=== PATIENT | male | born 1945 | race Caucasian/White ===

== ENCOUNTER 2016-08-27 20:50 | Inpatient (IN) | payer MEDICARE, BC ==
[2016-08-27] MEDS ORDERED: Nitroglycerin 2% OINT* 1 GM PAK TOPICAL ONE (21:21)
[2016-08-27] MEDS ORDERED: Aspirin Low Dose CHEW TAB* 81 MG PO ONE (21:21)
[2016-08-27 21:39] LABS: Hematocrit 47 % (42-52); Hemoglobin 15.1 g/dl (14.0-18.0); Mean Corpuscular HGB Conc 32 g/dl (31-36); Mean Corpuscular Hemoglobin 27 pg (27-31); Mean Corpuscular Volume 84 fL (80-94); Mean Platelet Volume 7 um3 (7.4-10.4); Red Blood Count 5.59 10^6/ul (4.0-5.4); Red Cell Distribution Width 16 % (10.5-15)
[2016-08-27 21:54] LABS: Albumin 4.2 g/dL (3.2-5.2); Calcium 9.5 mg/dL (8.6-10.3); EGFR African American 95.3 (>60); EGFR Non-African American 74.1 (>60); Globulin 2.9 g/dL (2-4); Potassium 3.9 mmol/L (3.5-5.0); Total Bilirubin 0.6 mg/dL (0.2-1.0); Total Protein 7.1 g/dL (6.4-8.9); Troponin I 0.02 ng/mL (<0.04)
--- NOTE | 2016-08-27 22:08 | RAD ---
Indication: Chest pain. Single frontal view of the chest performed at 2131 hours was reviewed. No prior study is available for comparison. No mediastinal shift is noted. Heart is of normal size and configuration. Lung woods appear clear. There is an elevated left hemidiaphragm. IMPRESSION: NO ACTIVE CARDIOPULMONARY DISEASE IS NOTED.
--- NOTE | 2016-08-27 22:26 | HP ---
H&P (Free Text) History and Physical: PCP: Dr Davis in [place] Date/Time of Evaluation: 08/27/2016 2230 CC: chest pain HPI: Mr Win is a 71YO male HX HTN & HLD presents with rapid onset around 1700 of severe non-radiating, non-exertional substernal chest pressure associated with sweating and light-headedness, but no SOB, N/V, or palpitations. He was given 4 baby aspirins to chew and a SL nitro via EMS which greatly alleviated his pain. While in the ED, he had a brief increase in pain and the beginning of a sweat which spontaneously resolved. ECG shows AFIB (no history) rate [address] depression in the lateral leads. Chest pressure is currently rated at 1/2 out of 10. Of note he had a R cataract extraction 2016. PMedHx HTN HLD Allergies No Known Allergies Allergy (Verified 08/27/16 20:55) Ambulatory Orders Atenolol TAB* [Tenormin TAB* 50 MG] 50 mg PO DAILY 08/27/16 Garlic 1,000 mg PO DAILY 08/27/16 Hydrocodone-Acetaminophen [Lorcet 5-325 mg] 1 tab PO Q4HR PRN 08/27/16 Ofloxacin 0.3% OTIC.CRIS* [Floxin 0.3% OTIC.CRIS*] 1 drop .SEE ORDER QID 08/27/16 Simvastatin [Zocor 40 MG (NF)] 40 mg PO QPM 08/27/16 prednisoLONE 1% OPHTH.SUSP* [Pred Forte 1%*] 1 drop .SEE ORDER QID 08/27/16 PSurgHx R cataract extraction 08/26/2016 SocHx: no tobacco, alcohol, or recreational drugs; lives with his ; full code status FamHx: positive for HTN & HLD ROS: as above, otherwise reviewed and all were negative Constitutional: NAD, normally developed, obese white male vitals: Vital Signs Temp 36.7 C 08/27/16 20:55 Pulse 71 08/27/16 20:55 Resp 32 08/27/16 20:55 BP 123/60 08/27/16 20:55 Pulse Ox 97 08/27/16 20:55 Intake & Output 08/26/16 08/27/16 08/27/16 23:59 11:59 23:59 Weight 124.738 kg HEENM: atraumatic; sclera/conjunctiva: non-icteric/clear; hearing: clinically intact; oropharynx: clear, mucosa moist Neck: soft tissue: non-tender; thyroid: normal Pulmonary: clear to auscultation bilaterally, good aeration, no accessory muscle use CV: RR/RR, normal S1S2, no carotid bruit, no jugular venous distention, 2+ B DP/ PT, no edema Abdominal: soft, non-distended, non-tender, no rebound/guarding/rigidity, normoactive bowel sounds, no hepatosplenomegaly or masses, no costovertebral angle tenderness Musculoskeletal: general: grossly intact; gait: stable Integumental: normal appearance and texture of exposed skin Psychiatric orientation: AA&O to PPS affect: calm mood: pleasant eye contact: good content: reliable responses: timely insight: good Testing: Lab Results 08/27/16 08/27/16 08/27/16 Range/Units 20:55 20:55 20:55 WBC 7.0 (3.5-10.8) 10^3/ul RBC 5.59 H (4.0-5.4) 10^6/ul Hgb 15.1 (14.0-18.0) g/dl Hct 47 (42-52) % MCV 84 (80-94) fL MCH 27 (27-31) pg MCHC 32 (31-36) g/dl RDW 16 H (10.5-15) % Plt Count 197 (150-450) 10^3/ul MPV 7 L (7.4-10.4) um3 Neut % (Auto) 66.9 (38-83) % Lymph % (Auto) 20.0 L (25-47) % [place] % (Auto) 11.4 H (1-9) % Eos % (Auto) 1.2 (0-6) % Baso % (Auto) 0.5 (0-2) % Absolute Neuts (auto) 4.7 (1.5-7.7) 10^3/ul Absolute Lymphs (auto) 1.4 (1.0-4.8) 10^3/ul Absolute Monos (auto) 0.8 (0-0.8) 10^3/ul Absolute Eos (auto) 0.1 (0-0.6) 10^3/ul Absolute Basos (auto) 0 (0-0.2) 10^3/ul Absolute Nucleated RBC 0.01 10^3/ul Nucleated RBC % 0.1 INR (Anticoag Therapy) 1.00 (0.89-1.11) Sodium 138 (133-145) mmol/L Potassium 3.9 (3.5-5.0) mmol/L Chloride 103 (101-111) mmol/L Carbon Dioxide 31 (22-32) mmol/L Anion Gap 4 (2-11) mmol/L BUN 17 (6-24) mg/dL Creatinine 1.00 (0.67-1.17) mg/dL Est GFR ( Amer) 95.3 (>60) Est GFR (Non-Af Amer) 74.1 (>60) BUN/Creatinine Ratio 17.0 (8-20) Glucose 122 H (70-100) mg/dL Calcium 9.5 (8.6-10.3) mg/dL Total Bilirubin 0.60 (0.2-1.0) mg/dL AST 18 (13-39) U/L ALT 16 (7-52) U/L Alkaline Phosphatase 41 (34-104) U/L Troponin I 0.02 (<0.04) ng/mL B-Natriuretic Peptide ( - 100) pg/mL Total Protein 7.1 (6.4-8.9) g/dL Albumin 4.2 (3.2-5.2) g/dL Globulin 2.9 (2-4) g/dL Albumin/Globulin Ratio 1.4 (1-3) 08/27/16 Range/Units 20:55 WBC (3.5-10.8) 10^3/ul RBC (4.0-5.4) 10^6/ul Hgb (14.0-18.0) g/dl Hct (42-52) % MCV (80-94) fL MCH (27-31) pg MCHC (31-36) g/dl RDW (10.5-15) % Plt Count (150-450) 10^3/ul MPV (7.4-10.4) um3 Neut % (Auto) (38-83) % Lymph % (Auto) (25-47) % [place] % (Auto) (1-9) % Eos % (Auto) (0-6) % Baso % (Auto) (0-2) % Absolute Neuts (auto) (1.5-7.7) 10^3/ul Absolute Lymphs (auto) (1.0-4.8) 10^3/ul Absolute Monos (auto) (0-0.8) 10^3/ul Absolute Eos (auto) (0-0.6) 10^3/ul Absolute Basos (auto) (0-0.2) 10^3/ul Absolute Nucleated RBC 10^3/ul Nucleated RBC % INR (Anticoag Therapy) (0.89-1.11) Sodium (133-145) mmol/L Potassium (3.5-5.0) mmol/L Chloride (101-111) mmol/L Carbon Dioxide (22-32) mmol/L Anion Gap (2-11) mmol/L BUN (6-24) mg/dL Creatinine (0.67-1.17) mg/dL Est GFR ( Amer) (>60) Est GFR (Non-Af Amer) (>60) BUN/Creatinine Ratio (8-20) Glucose (70-100) mg/dL Calcium (8.6-10.3) mg/dL Total Bilirubin (0.2-1.0) mg/dL AST (13-39) U/L ALT (7-52) U/L Alkaline Phosphatase (34-104) U/L Troponin I (<0.04) ng/mL B-Natriuretic Peptide 67 ( - 100) pg/mL Total Protein (6.4-8.9) g/dL Albumin (3.2-5.2) g/dL Globulin (2-4) g/dL Albumin/Globulin Ratio (1-3) ECG, personally reviewed: AFIB rate 81, ST flattening/depression V3-6 & I CXR, personally reviewed: IMPRESSION: NO ACTIVE CARDIOPULMONARY DISEASE IS NOTED. Impression: 71M presenting ~36hours after R cataract extraction with chest pain for r/o ACS DIAGNOSIS & PLAN Primary chest pain r/o ACS : aspirin : 0.5" nitropaste : hold heparin given near resolution of chest pain & chronologic proximity to eye surgery : telemetry : trend troponin : exercise NST in AM : supplemental oxygen : supportive care : Patient & advised that should his pain worsen, his troponin increase, or other evidence of VT arise, heparin GTT may be recommended with the risk being bleeding into the R eye and potential vision loss, although this would be a relatively low risk. They are aware and accepting of this, should it become necessary. AFIB, new onset : unknown duration : hold anticoagulation as above until further out from surgery : rate controlled : [id number], anticoagulation at discharge is recommended Secondary HTN : continue atenolol HLD : continue simvastatin recent R cataract extraction : continue ofloxacin & prednisone eye GTTs Admission Rational: CDU observation for chest pain DVTp: SCDs, no anticoagulation 2nd eye surgery <48hours ago Code Status: full HCP:
[2016-08-27] MEDS ORDERED: Acetaminophen TAB* 325 MG PO PRN (22:32)
--- NOTE | 2016-08-27 22:58 | ED ---
Allan Hubbard Rebecca, scribed for Nadeem Snyderuel on 08/27/16 at 2120 . HPI Chest Pain - HPI Summary HPI Summary: Pt is a 71 y/o M BIBA who presents to ED c/o CP. Pain began suddenly at 1915 while watching tv and has been constant since onset. Pain is substernal without radiation and characterized as pressure, currently ranked 2/10. Sx alleviated by NTG, aggravated by nothing and unchanged by deep breaths. Additionally c/o diaphoresis. Denies SOB, nausea and edema. Denies similar prior episodes. PMHx HTN, HLD. SHx no smoking. No PMHx CAD. FHx CHF. No recent stress test. - History of Current Complaint Chief Complaint: EDChestPainROMI Time Seen by Provider: 08/27/16 21:12 Hx Obtained From: Patient Onset/Duration: Started Hours Ago - 2 hours, Still Present Time of Onset: 19:15 Timing: Constant Initial Severity: Moderate Current Severity: Mild Pain Intensity: 2 Pain Scale Used: 0-10 Numeric Chest Pain Location: Lower Sternal Chest Pain Radiates: No Character: Pressure/Squeezing Aggravating Factor(s): Nothing Alleviating Factor(s): NTG 123 - 1 Associated Signs and Symptoms: Positive: Diaphoresis. Negative: Shortness of Breath, Nausea, Edema - Allergy/Home Medications Allergies/Adverse Reactions: Allergies Allergy/AdvReac Type Severity Reaction Status Date / Time No Known Allergies Allergy Verified 08/27/16 20:55 PMH/Surg Hx/FS Hx/Imm Hx Endocrine/Hematology History: Denies: Hx Diabetes Cardiovascular History: Reports: Hx Hypercholesterolemia, Hx Hypertension Denies: Hx Coronary Artery Disease Infectious Disease History: No Infectious Disease History: Denies: Traveled Outside the [place] in Last 30 Days - Family History Known Family History: Positive: Other - CHF - father - Social History Alcohol Use: Occasionally Substance Use Type: Reports: None Smoking Status (MU): Never Smoked Tobacco Review of Systems Positive: Skin Diaphoresis Positive: Chest Pain - pressure Negative: Shortness Of Breath Negative: Nausea Negative: Edema All Other Systems Reviewed And Are Negative: Yes Physical Exam Triage Information Reviewed: Yes Vital Signs On Initial Exam: Initial Vitals Temp Pulse Resp BP Pulse Ox 98.0 F 71 32 123/60 97 08/27/16 20:55 08/27/16 20:55 08/27/16 20:55 08/27/16 20:55 08/27/16 20:55 Vital Signs Reviewed: Yes Appearance: Positive: Well-Appearing, No Pain Distress Skin: Positive: Warm, Skin Color Reflects Adequate Perfusion, Dry Head/Face: Positive: Normal Head/Face Inspection Eyes: Positive: EOMI, VOLODYMYR ENT: Positive: Normal ENT inspection Neck: Positive: Supple, Nontender Respiratory/Lung Sounds: Positive: Clear to Auscultation, Breath Sounds Present Cardiovascular: Positive: RRR, Pulses are Symmetrical in both Upper and Lower Extremities Abdomen Description: Positive: Nontender, Soft Bowel Sounds: Positive: Present Musculoskeletal: Positive: Normal, Strength/ROM Intact Neurological: Positive: Normal, Sensory/Motor Intact, Alert, Oriented to Person Place, Time - [place] Coma Scale Coma Scale Total: 15 Diagnostics - Vital Signs Vital Signs Temp Pulse Resp BP Pulse Ox 08/27/16 20:55 98.0 F 71 32 123/60 97 - Laboratory Result Diagrams: 08/27/16 20:55 08/27/16 20:55 Lab Statement: Any lab studies that have been ordered have been reviewed, and results considered in the medical decision making process. - Radiology CXR Radiology Interpretation Completed By: Radiologist - NO ACTIVE CARDIOPULMONARY DISEASE IS NOTED. - EKG 2048 Cardiac Rate: NL - 84 bpm EKG Rhythm: Atrial Fibrillation ST Segment: Non-Specific - Non-specific ST changes EKG Interpretation: No STEMI Chest Pain Course/Dx - Course Assessment/Plan: Pt is a 71 y/o M with a CC of substernal CP since 191. Additionally c/o diaphoresis. Denies SOB, nausea and edema. CXR and EKG reveal no acute pathology. Discussed care of pt with Dr. Bower, who accepts pt for admission. Pt will be admitted. - Diagnoses Provider Diagnoses: Chest pain, Chest pain, rule out acute myocardial infarction - Provider Notifications Discussed Care Of Patient With: Dr. Bower, hospitalist, who accepts pt for admission. Time Discussed With Above Provider: 22:24 Discharge - Discharge Plan Condition: Stable Disposition: ADMITTED TO [facility] documentation as recorded by the Allan magdaleno Rebecca accurately reflects the service I personally performed and the decisions made by , Cristino Snyder.
[2016-08-27] MEDS ORDERED: Ondansetron INJ* 2 MG/ML VIAL IV PRN (23:12)
[2016-08-27] MEDS ORDERED: Morphine INJ* 2 MG/ML 1 ML SYRINGE IV PRN (23:12)
[2016-08-27] MEDS ORDERED: PROCHLORPERAZINE INJ 5 MG/ML 2 ML VIAL IV PRN (23:12)
[2016-08-27] MEDS ORDERED: Melatonin (NF) 3 MG TAB PO PRN (23:12)
[2016-08-27] MEDS ORDERED: NS 0.9% 1000 ML* 1,000 ML IV SCH (23:15)
[2016-08-27] MEDS: Nitroglycerin 2% OINT* 1 GM PAK TOPICAL SCH (23:36)
[2016-08-27] MEDS ORDERED: Pantoprazole IV* 40 MG IV SCH (23:45)
[2016-08-28] MEDS: Nitro Patch/OINT Remove PATCH OFF SCH ×2 (01:06→06:09)
[2016-08-28] MEDS: OFLOXACIN 0.3% RIGHT EYE SCH ×5 (01:16→20:35)
[2016-08-28] MEDS: PREDNISOLONE 1% RIGHT EYE SCH ×5 (01:18→20:35)
[2016-08-28] MEDS ORDERED: Heparin DRIP 25,000 UNITS(*) 25,000 UNITS/500 ML BAG IVPB SCH (01:45)
--- NOTE | 2016-08-28 01:48 | PN ---
Progress Note - Progress Note Note: Nursing called reporting 3H follow up troponin of 19. Situation was re- addressed with patient in light of this new finding representing an NSTEMI. He is aware of and accepts the risk of heparin GTT mainly being bleeding into the R eye with resultant decrease in or total loss of vision in the R eye as he is < 48H s/p OD cataract extraction. His exercise NST was cancelled and a heparin GTT per protocol ordered. Will consult cardiology in AM for further evaluation & consideration of cardiac cath.
[2016-08-28] MEDS ORDERED: Heparin VIAL(*) 5000 UNITS/ML VIAL (FIVE THOUSAND) IV PRN (02:54)
[2016-08-28] MEDS: Nitroglycerin 2% OINT* 1 GM PAK TOPICAL SCH (06:10)
[2016-08-28] MEDS ORDERED: Nitroglycerin TAB 0.4 MG* 0.4 MG TAB ONE (07:47)
[2016-08-28] MEDS: Atenolol TAB* 50 MG PO SCH (08:33)
[2016-08-28] MEDS ORDERED: Heparin(*) 1000 UNIT/ML 10 ML VIAL CATH LAB IV ONE ×3 (08:43→10:38)
[2016-08-28] MEDS ORDERED: VERAPAMIL 2.5 MG/ML 4 ML VIAL ONE ×2 (08:43→09:08)
[2016-08-28] MEDS ORDERED: nitroGLYCERIN DRIP* 250 ML ONE (08:43)
[2016-08-28] MEDS ORDERED: Midazolam* 1 MG/ML 5 ML VIAL (5 MG) ONE (08:44)
[2016-08-28] MEDS ORDERED: fentaNYL* 50 MCG/ML 2 ML VIAL (100 MCG VIAL) ONE (08:44)
[2016-08-28] MEDS ORDERED: Iohexol 350 (CONTRAST) 200 ML MDV IV ONE (08:44)
[2016-08-28] MEDS ORDERED: Lidocaine 1% INJ* 10 MG/ML 30 ML SDV ONE (08:45)
[2016-08-28] MEDS ORDERED: Heparin 2 UNITS/ML IVPREMIX* 3,000 ML IV ONE (08:45)
[2016-08-28] MEDS ORDERED: Aspirin TAB* 325 MG PO SCH (09:00)
[2016-08-28] MEDS ORDERED: Aspirin Low Dose CHEW TAB* 81 MG ONE (10:06)
[2016-08-28] MEDS ORDERED: Ticagrelor* 90 MG TAB PO ONE (10:06)
[2016-08-28] MEDS ORDERED: Nitroglycerin TAB 0.4 MG* 0.4 MG TAB SL PRN (11:00)
[2016-08-28] MEDS ORDERED: NS 0.9% 1000 ML* 1,000 ML IV SCH (11:00)
--- NOTE | 2016-08-28 11:26 | CONSULT ---
Subjective Date of Service: 08/28/16 Interval History: Admission Date: 08/27/16 Consult date 08/28/2016 Provider: Augie Bower MD/Hospitalist CC: Chest pain Reason for consult: NSTEMI HPI : Mr Win is a 71 year old man with a history of hypertension and dyslipidemia. Was exercising yesterday and was asymptomatic. 2 hours later had sudden onset 5/10 chest pressure at rest non-radiationg associated with sweating and light-headedness, but no dyspnea. No palpitations or syncope. No prior episodes. He was given 4 baby aspirins to chew and a SL nitro via EMS which reduced pressure to from 5/10 to "barely noticeable" which has persisted. Found to be in atrial fibrillation onset unclear. States that long time ago was told heart beat pauses for a second but was not a cause of concern. Denies every being prescribed a daily aspirin or anti-coagulant. No blood transfusions or anemia history. No kidney problems. No food or drug allergies. Patient was given aspirin, heparin gtt and maintained on atenolol. Had 8 beats NSVT on monitor overnight. PMedHx HTN HLD Pshx: R cataract extraction 08/26/2016. 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 Medications Active Medications: Acetaminophen (Tylenol Tab*) 650 mg PO Q6H PRN PRN Reason: FEVER/PAIN Aspirin (Aspirin Low Dose Tab*) 81 mg PO DAILY [facility] Atenolol (Tenormin Tab*) 50 mg PO DAILY [facility] Last Admin: 08/28/16 08:33 Dose: 50 mg Atorvastatin Calcium (Lipitor*) 80 mg PO QPM [facility] Docusate Sodium (Colace Cap*) 200 mg PO BID [facility] Heparin Sodium (Porcine) (Heparin Vial(*)) 0 units IV .PER PROTOCOL PRN PRN Reason: HEPARIN DRIP BOLUSES Last Admin: 08/28/16 03:09 Dose: 7,200 units Sodium Chloride (Ns 0.9% 1000 Ml*) 1,000 mls @ 100 mls/hr IV .per rate [facility] Stop: 08/28/16 15:00 Melatonin (Melatonin (Nf)) 3 mg PO BEDTIME PRN; Protocol PRN Reason: Sleep Morphine Sulfate (Morphine Inj (Syringe)*) 2 mg IV Q4H PRN PRN Reason: PAIN - MILD Nitroglycerin (Nitroglycerin Tab 0.4 Mg*) 0.4 mg SL Q5M PRN PRN Reason: ANGINA Ofloxacin (Ocuflox Opth 0.3%(Nf)) 1 drop RIGHT EYE QID [facility] Last Admin: 08/28/16 08:38 Dose: 1 drop Ondansetron HCl (Zofran Inj*) 4 mg IV Q6H PRN PRN Reason: NAUSEA Prednisolone Acetate (Pred Forte 1%*) 1 drop RIGHT EYE QID [facility] Last Admin: 08/28/16 08:38 Dose: 1 drop Prochlorperazine Edisylate (Compazine Inj*) 10 mg IV Q6H PRN PRN Reason: NAUSEA Ticagrelor (Brilinta*) 90 mg PO BID [facility] Home Medications: Atenolol TAB* [Tenormin TAB* 50 MG] 50 mg PO DAILY 08/27/16 [History Confirmed 08/27/16] Garlic 1,000 mg PO DAILY 08/27/16 [History Confirmed 08/27/16] Hydrocodone-Acetaminophen [Lorcet 5-325 mg] 1 tab PO Q4HR PRN 08/27/16 [History Confirmed 08/27/16] Ofloxacin 0.3% OTIC.CRIS* [Floxin 0.3% OTIC.CRIS*] 1 drop .SEE ORDER QID 08/27/16 [History Confirmed 08/27/16] Simvastatin [Zocor 40 MG (NF)] 40 mg PO QPM 08/27/16 [History Confirmed 08/27/16 ] prednisoLONE 1% OPHTH.SUSP* [Pred Forte 1%*] 1 drop .SEE ORDER QID 08/27/16 [ History Confirmed 08/27/16] Review of Systems - Measurements Intake and Output: Intake and Output Last 24 Hours 08/26/16 08/27/16 08/28/16 08/29/16 06:59 06:59 06:59 06:59 Intake Total 680 Output Total 200 Balance 480 Weight 283 lb Intake: IV Fluids 630 NS (0.9%) 620 Medicated IV 50 Heparin drip 50 Oral 0 Output: Urine 200 Other: # Bowel Movements 0 - Review of Systems Constitutional Symptoms: Negative: Weight Gain, Weight Loss, Weakness, Fatigue, Fever, Night Sweats, Unexplained Falls Dermatology: Negative: Normal, Rash, Skin Lesions HEENT: Negative: Change in Hearing, Vertigo Eyes: Negative: Change in Vision, Double Vision Thyroid: Negative: Thyroid Nodule, Cold Intolerance, Heat Intolerance, Constipation, Palpitations Pulmonary: Negative: Cough, Sputum, Hemoptysis, Wheezing, Respiratory Distress, Shortness of Breath, COPD Cardiology: Positive: Chest Pain Negative: Shortness of Breath, Palpitations, Swelling of Ankles, Peripheral Vascular Dis, Edema, Faintness, Syncope, Claudication, Paroxysmal Nocturnal Dyspnea, Orthopnea Gastroenterology: Negative: Abdominal Pain, Vomiting, Anorexia, Indigestion, Difficulty Swallowing, Heartburn, Constipation, Diarrhea, Haematemesis, Melena Genital - Urinary: Negative: Normal, Dysuria Musculoskeletal: Negative: Joint Pain, Joint Stiffness, Arthritis, Osteoporosis, Low Back Pain Endocrinology: Positive: Obesity Negative: Diabetes, Hyperglycemia, Hypoglycemia, Diabetic Foot Ulcers, Polydipsia, Polyuria Hematologic/Lymphatic: Negative: Anemia, Hx Leukemia, Hx Lymphoma, Use of Anticoagulant, Use of Antiplatelet Drugs Neurology: Negative: Change in Balancing, Change in Coordination, Change in Memory, Change in Speech, Change in Sphincter Function, Change in Walking Psychiatry: Negative: Depression, Anxiety, Depressed Mood, Adhedonia Allergic/Immunologic: Negative: Hx Anaphylaxis, Hx Angioedema, Hx HIV, Immunocompromise Review of Systems Statement: All other review of systems negative, unless stated above. Objective Vital Signs: Temp Pulse Resp BP Pulse Ox 98.4 F 98 24 128/82 97 08/28/16 08:12 08/28/16 08:12 08/28/16 08:12 08/28/16 08:12 08/28/16 08:12 Appearance: NAD, very pleasant Ears/Nose/Mouth/Throat: Clear Oropharnyx, Mucous Membranes Moist Neck: NL Appearance and Movements; NL JVP Respiratory: Symmetrical Chest Expansion and Respiratory Effort, Clear to Auscultation Cardiovascular: NL Sounds; No Murmurs; No JVD, RRR, No Edema Abdominal: NL Sounds; No Tenderness; No Distention Extremities: No Edema Skin: No Rash or Ulcers Neurological: Alert and Oriented x 3, NL Muscle Strength and Tone Laboratory Results: 08/27/16 20:55 08/27/16 20:55 INR (Anticoag Therapy) 1.00 (0.89-1.11) 08/27/16 20:55 APTT > 212.0 seconds (26.0-36.3) H* 08/28/16 05:06 Total Bilirubin 0.60 mg/dL (0.2-1.0) 08/27/16 20:55 AST 18 U/L (13-39) 08/27/16 20:55 ALT 16 U/L (7-52) 08/27/16 20:55 Alkaline Phosphatase 41 U/L (34-104) 08/27/16 20:55 B-Natriuretic Peptide 67 pg/mL (-100) 08/27/16 20:55 Total Protein 7.1 g/dL (6.4-8.9) 08/27/16 20:55 Albumin 4.2 g/dL (3.2-5.2) 08/27/16 20:55 Globulin 2.9 g/dL (2-4) 08/27/16 20:55 Albumin/Globulin Ratio 1.4 (1-3) 08/27/16 20:55 08/27/16 08/28/16 08/28/16 20:55 00:31 05:06 Troponin I 0.02 19.02 H* 50.54 H* EKG Data: EKG 08/27/2016: Afib rate 80 bpm, nondiagnostic 0.5 mm MINDY lead II with ischemic downsloping ST depression across precordium and lesser 1/aAVL Repeat 8 hour later rate controlled AFib with near resolution of ST changes Assessment/Plan Mr. Win is a 71 year old man with a history of HTN, dyslipidemia, presents with NSTEMI and atrial fibrillation of uncertain onset. - Continue aspirin - Continue heparin gtt - Continue beta-mohsen - Continue intensive dose statin - Check lipid panel and Hgba1c - Cardiac catheterization with intent for revascularization indicated and recommended. Risks, benefits and alternatives discussed and patient would like to proceed. Will defer further anti-platelet/anti-coagulant regimen to Dr. Salinas Thank you for allowing me to participate in the cardiovascular care of this patient. Please do not hesitate to contact me with questions or concerns.
[2016-08-28] MEDS: Docusate CAP* 100 MG PO SCH ×2 (12:20→20:35)
--- NOTE | 2016-08-28 15:19 | PN ---
Subjective Date of Service: 08/28/16 Interval History: HOSPITALIST PROGRESS NOTE Patient seen and examined at bedside earlier today. He denies chest pain or dyspnea at this time. Family History: Unchanged from Admission Social History: Unchanged from Admission Past Medical History: Unchanged from Admission Objective Active Medications: Acetaminophen (Tylenol Tab*) 650 mg PO Q6H PRN PRN Reason: FEVER/PAIN Aspirin (Aspirin Low Dose Tab*) 81 mg PO DAILY [facility] Atenolol (Tenormin Tab*) 50 mg PO DAILY [facility] Last Admin: 08/28/16 08:33 Dose: 50 mg Atorvastatin Calcium (Lipitor*) 80 mg PO QPM [facility] Docusate Sodium (Colace Cap*) 200 mg PO BID [facility] Last Admin: 08/28/16 12:20 Dose: Not Given Heparin Sodium (Porcine) (Heparin Vial(*)) 0 units IV .PER PROTOCOL PRN PRN Reason: HEPARIN DRIP BOLUSES Last Admin: 08/28/16 03:09 Dose: 7,200 units Melatonin (Melatonin (Nf)) 3 mg PO BEDTIME PRN; Protocol PRN Reason: Sleep Morphine Sulfate (Morphine Inj (Syringe)*) 2 mg IV Q4H PRN PRN Reason: PAIN - MILD Nitroglycerin (Nitroglycerin Tab 0.4 Mg*) 0.4 mg SL Q5M PRN PRN Reason: ANGINA Ofloxacin (Ocuflox Opth 0.3%(Nf)) 1 drop RIGHT EYE QID [facility] Last Admin: 08/28/16 14:27 Dose: 1 drop Ondansetron HCl (Zofran Inj*) 4 mg IV Q6H PRN PRN Reason: NAUSEA Prednisolone Acetate (Pred Forte 1%*) 1 drop RIGHT EYE QID [facility] Last Admin: 08/28/16 14:18 Dose: 1 drop Prochlorperazine Edisylate (Compazine Inj*) 10 mg IV Q6H PRN PRN Reason: NAUSEA Ticagrelor (Brilinta*) 90 mg PO BID [facility] Vital Signs 08/28/16 08/28/16 13:45 14:00 Temperature Pulse Rate 98 83 Respiratory 19 25 Rate Blood Pressure 116/84 123/89 (mmHg) O2 Sat by Pulse 95 94 Oximetry Oxygen Devices in Use Now: Nasal Cannula Appearance: Pleasant gentleman lying in bed in NAD. Eyes: No Scleral Icterus Ears/Nose/Mouth/Throat: Mucous Membranes Moist Neck: Trachea Midline Respiratory: Symmetrical Chest Expansion and Respiratory Effort, Clear to Auscultation Cardiovascular: NL Sounds; No Murmurs; No JVD, RRR Abdominal: NL Sounds; No Tenderness; No Distention Extremities: No Edema Neurological: Alert and Oriented x 3, NL Muscle Strength and Tone Lines/Tubes/Other Access: Clean, Dry and Intact Peripheral IV Nutrition: Taking PO's Result Diagrams: 08/27/16 20:55 08/27/16 20:55 Assess/Plan/Problems-Billing Assessment: Mr. Win is a 71yo M with PMH of HTN, HLD who presented to ED with c/o CP, found to have NSTEMI and Afib. - Patient Problems (1) NSTEMI (non-ST elevated myocardial infarction) Comment: - Transfer to ICU. - Cardiology input appreciated - continue Aspirin, heparin drip, beta mohsen, statin. - Plan for cardiac cath. - Check lipid profile and A1c. (2) Afib Comment: - Continue heparin drip. - [id number] is 3, but he'll probably be on double antiplatelet therapy after his cath. Will await Cardiology guidance re: anticoagulation. (3) HTN (hypertension) Comment: - Continue Atenolol. (4) HLD (hyperlipidemia) Comment: - Continue Atorvastatin. (5) DVT prophylaxis Comment: - Heparin. (6) Full code status
[2016-08-28] MEDS ORDERED: Atorvastatin* 20 MG TAB PO SCH (18:00)
--- NOTE | 2016-08-28 18:40 | PN ---
Hospitalist Progress Note HOSPITALIST ADDENDUM Patient reevaluated at bedside. She is much more comfortable now on Vapotherm. Cough is controlled and she is feeling less dyspneic. PE: pleasant lady sitting up in bed eating dinner. SO2 96% on Vapotherm 40 liters FiO2 100%. Chest: BS+ bilaterally with bibasilar crackles. Will continue to monitor closely in ICU.
[2016-08-28] MEDS: Atorvastatin* 80 MG TAB PO SCH (18:42)
[2016-08-28] MEDS ORDERED: Ticagrelor* 90 MG TAB PO SCH (21:00)
[2016-08-29 06:08] LABS: Hematocrit 47 % (42-52); Hemoglobin 15.2 g/dl (14.0-18.0); Mean Corpuscular HGB Conc 33 g/dl (31-36); Mean Corpuscular Hemoglobin 27 pg (27-31); Mean Corpuscular Volume 83 fL (80-94); Mean Platelet Volume 7 um3 (7.4-10.4); Red Blood Count 5.62 10^6/ul (4.0-5.4); Red Cell Distribution Width 16 % (10.5-15); White Blood Count 9.2 10^3/ul (3.5-10.8)
[2016-08-29 06:24] LABS: Calcium 9.2 mg/dL (8.6-10.3); EGFR African American 123.3 (>60); EGFR Non-African American 95.8 (>60)
[2016-08-29] MEDS: Aspirin Low Dose CHEW TAB* 81 MG PO SCH (09:41)
[2016-08-29] MEDS: Atenolol TAB* 50 MG PO SCH (09:41)
[2016-08-29] MEDS: OFLOXACIN 0.3% RIGHT EYE SCH ×4 (09:42→20:24)
[2016-08-29] MEDS: Docusate CAP* 100 MG PO SCH ×2 (09:42→20:25)
[2016-08-29] MEDS: Clopidogrel TAB* 75 MG PO SCH (09:42)
[2016-08-29] MEDS: PREDNISOLONE 1% RIGHT EYE SCH ×4 (09:43→20:24)
[2016-08-29] MEDS: Rivaroxaban TAB(*) 15 MG PO SCH (09:45)
[2016-08-29] MEDS ORDERED: Atenolol TAB* 25 MG PO ONE (12:30)
--- NOTE | 2016-08-29 13:43 | PN ---
Subjective Date of Service: 08/29/16 Interval History: HOSPITALIST PROGRESS NOTE Patient seen and examined at bedside. He is in good spirits, feels well today. Not a "twinge" of chest pain, denies dyspnea or palpitations. Family History: Unchanged from Admission Social History: Unchanged from Admission Past Medical History: Unchanged from Admission Objective Active Medications: Acetaminophen (Tylenol Tab*) 650 mg PO Q6H PRN PRN Reason: FEVER/PAIN Aspirin (Aspirin Low Dose Tab*) 81 mg PO DAILY [facility] Last Admin: 08/29/16 09:41 Dose: 81 mg Atenolol (Tenormin Tab*) 75 mg PO DAILY [facility] Atorvastatin Calcium (Lipitor*) 80 mg PO QPM [facility] Last Admin: 08/28/16 18:42 Dose: 80 mg Clopidogrel Bisulfate (Plavix Tab*) 75 mg PO DAILY [facility] Last Admin: 08/29/16 09:42 Dose: 75 mg Docusate Sodium (Colace Cap*) 200 mg PO BID [facility] Last Admin: 08/29/16 09:42 Dose: 200 mg Melatonin (Melatonin (Nf)) 3 mg PO BEDTIME PRN; Protocol PRN Reason: Sleep Morphine Sulfate (Morphine Inj (Syringe)*) 2 mg IV Q4H PRN PRN Reason: PAIN - MILD Nitroglycerin (Nitroglycerin Tab 0.4 Mg*) 0.4 mg SL Q5M PRN PRN Reason: ANGINA Ofloxacin (Ocuflox Opth 0.3%(Nf)) 1 drop RIGHT EYE QID [facility] Last Admin: 08/29/16 09:42 Dose: 1 drop Ondansetron HCl (Zofran Inj*) 4 mg IV Q6H PRN PRN Reason: NAUSEA Prednisolone Acetate (Pred Forte 1%*) 1 drop RIGHT EYE QID [facility] Last Admin: 08/29/16 09:43 Dose: 1 drop Prochlorperazine Edisylate (Compazine Inj*) 10 mg IV Q6H PRN PRN Reason: NAUSEA Rivaroxaban (Xarelto(*)) 15 mg PO DAILY [facility] Last Admin: 08/29/16 09:45 Dose: 15 mg Vital Signs 08/29/16 08/29/16 09:00 12:14 Temperature 97.5 F Pulse Rate 83 Respiratory 18 16 Rate Blood Pressure 141/76 (mmHg) O2 Sat by Pulse 95 Oximetry Oxygen Devices in Use Now: None Appearance: Pleasant obese gentleman sitting up in bed in NAD. Eyes: No Scleral Icterus Ears/Nose/Mouth/Throat: Mucous Membranes Moist Neck: Trachea Midline Respiratory: Symmetrical Chest Expansion and Respiratory Effort, Clear to Auscultation Cardiovascular: - - Normal S1 and S2, irregularly irregular Abdominal: NL Sounds; No Tenderness; No Distention Extremities: No Edema Neurological: Alert and Oriented x 3, NL Muscle Strength and Tone Lines/Tubes/Other Access: Clean, Dry and Intact Peripheral IV Nutrition: Taking PO's Result Diagrams: 08/29/16 05:55 08/29/16 05:55 Assess/Plan/Problems-Billing Assessment: Mr. Win is a 71yo M with PMH of HTN, HLD who presented to ED with c/o CP, found to have NSTEMI and Afib. - Patient Problems (1) NSTEMI (non-ST elevated myocardial infarction) Comment: - Transfer to Telemetry. - S/p stent to RCA. - Continue Aspirin, Plavix, statin, and atenolol. (2) Afib Comment: - [id number] is 3 - as per Cardiology recommendation patient will be on ASA, Plavix and low dose Xarelto. - Rate is controlled. (3) HTN (hypertension) Comment: - Continue Atenolol. - May need to add ACEI or ARB. (4) HLD (hyperlipidemia) Comment: - Continue Atorvastatin. (5) DVT prophylaxis Comment: - Xarelto. (6) Full code status Status and Disposition: Inpatient. Anticipate d/c in AM.
[2016-08-29] MEDS: Atorvastatin* 80 MG TAB PO SCH (17:39)
[2016-08-30] MEDS: PREDNISOLONE 1% RIGHT EYE SCH ×4 (08:17→20:19)
[2016-08-30] MEDS: Docusate CAP* 100 MG PO SCH ×2 (08:18→20:17)
[2016-08-30] MEDS: Aspirin Low Dose CHEW TAB* 81 MG PO SCH (08:19)
[2016-08-30] MEDS: Clopidogrel TAB* 75 MG PO SCH (08:19)
[2016-08-30] MEDS: OFLOXACIN 0.3% RIGHT EYE SCH ×4 (08:19→20:19)
[2016-08-30] MEDS: Rivaroxaban TAB(*) 15 MG PO SCH (08:21)
[2016-08-30] MEDS: Atenolol TAB* 50 MG PO SCH ×2 (08:22→10:15)
--- NOTE | 2016-08-30 10:55 | PN ---
Subjective Date of Service: 08/30/16 Interval History: HOSPITALIST PROGRESS NOTE Patient seen and examined at bedside. He feels well today, denies CP, palpitations, anxious for discharge. Had one episode of 7 beats of Vtach yesterday while talking with family, asymptomatic, not aware it had happened. Family History: Unchanged from Admission Social History: Unchanged from Admission Past Medical History: Unchanged from Admission Objective Active Medications: Acetaminophen (Tylenol Tab*) 650 mg PO Q6H PRN PRN Reason: FEVER/PAIN Aspirin (Aspirin Low Dose Tab*) 81 mg PO DAILY [facility] Last Admin: 08/30/16 08:19 Dose: 81 mg Atenolol (Tenormin Tab*) 75 mg PO DAILY [facility] Last Admin: 08/30/16 10:15 Dose: Not Given Atorvastatin Calcium (Lipitor*) 80 mg PO QPM [facility] Last Admin: 08/29/16 17:39 Dose: 80 mg Clopidogrel Bisulfate (Plavix Tab*) 75 mg PO DAILY [facility] Last Admin: 08/30/16 08:19 Dose: 75 mg Docusate Sodium (Colace Cap*) 200 mg PO BID [facility] Last Admin: 08/30/16 08:18 Dose: 200 mg Melatonin (Melatonin (Nf)) 3 mg PO BEDTIME PRN; Protocol PRN Reason: Sleep Metoprolol Tartrate (Lopressor Tab*) 25 mg PO Q8H [facility] Morphine Sulfate (Morphine Inj (Syringe)*) 2 mg IV Q4H PRN PRN Reason: PAIN - MILD Nitroglycerin (Nitroglycerin Tab 0.4 Mg*) 0.4 mg SL Q5M PRN PRN Reason: ANGINA Ofloxacin (Ocuflox Opth 0.3%(Nf)) 1 drop RIGHT EYE QID [facility] Last Admin: 08/30/16 08:19 Dose: 1 drop Ondansetron HCl (Zofran Inj*) 4 mg IV Q6H PRN PRN Reason: NAUSEA Prednisolone Acetate (Pred Forte 1%*) 1 drop RIGHT EYE QID [facility] Last Admin: 08/30/16 08:17 Dose: 1 drop Prochlorperazine Edisylate (Compazine Inj*) 10 mg IV Q6H PRN PRN Reason: NAUSEA Rivaroxaban (Xarelto(*)) 15 mg PO DAILY [facility] Last Admin: 08/30/16 08:21 Dose: 15 mg Vital Signs 08/30/16 08/30/16 08/30/16 08:00 08:06 08:31 Temperature 97.9 F Pulse Rate 53 94 Respiratory 16 16 Rate Blood Pressure 121/94 (mmHg) O2 Sat by Pulse 96 Oximetry Oxygen Devices in Use Now: None Appearance: Pleasant gentleman sitting up in a recliner in NAD. Eyes: No Scleral Icterus Ears/Nose/Mouth/Throat: Mucous Membranes Moist Neck: Trachea Midline Respiratory: Symmetrical Chest Expansion and Respiratory Effort, Clear to Auscultation Cardiovascular: - - Normal S1 and S2, irregularly irregular Extremities: No Edema Neurological: Alert and Oriented x 3, NL Muscle Strength and Tone Lines/Tubes/Other Access: Clean, Dry and Intact Peripheral IV Nutrition: Taking PO's Result Diagrams: 08/29/16 05:55 08/29/16 05:55 Assess/Plan/Problems-Billing Assessment: Mr. Win is a 71yo M with PMH of HTN, HLD who presented to ED with c/o CP, found to have NSTEMI and Afib. - Patient Problems (1) Non-sustained ventricular tachycardia Comment: - 7 beats of Vtach yesterday, asymptomatic. - D/w Dr. Salinas - patient is not yet beta-blocked as his HR is 80-90s. Recommended adding Metoprolol tartrate 25mg TID on top of Atenolol 75mg today and continue to monitor on Telemetry. (2) NSTEMI (non-ST elevated myocardial infarction) Comment: - S/p stent to RCA. - Continue Aspirin, Plavix, statin, and atenolol. (3) Afib Comment: - [id number] is 3 - as per Cardiology recommendation patient will be on ASA, Plavix and low dose Xarelto. - Rate is controlled. (4) HTN (hypertension) Comment: - Continue Atenolol. - May need to add ACEI or ARB. (5) HLD (hyperlipidemia) Comment: - Continue Atorvastatin. (6) DVT prophylaxis Comment: - Xarelto. (7) Full code status Status and Disposition: Inpatient. Anticipate d/c in AM if no further episodes of Vtach.
[2016-08-30] MEDS: Metoprolol Tartrate TAB* 25 MG PO SCH ×2 (11:05→20:17)
[2016-08-30 11:56] LABS: Magnesium 2.1 mg/dL (1.9-2.7)
[2016-08-30] MEDS: Atorvastatin* 80 MG TAB PO SCH (17:13)
[2016-08-31] MEDS: Metoprolol Tartrate TAB* 25 MG PO SCH ×2 (02:50→11:03)
[2016-08-31 06:38] LABS: BUN/Creatinine Ratio 19.4 (8-20); EGFR African American 92.1 (>60); EGFR Non-African American 71.6 (>60); Potassium 3.9 mmol/L (3.5-5.0)
[2016-08-31 07:33] VITALS: BP 147/91
[2016-08-31] MEDS ORDERED: Atenolol TAB* 50 MG PO SCH (07:48)
[2016-08-31] MEDS: Aspirin Low Dose CHEW TAB* 81 MG PO SCH (09:00)
[2016-08-31] MEDS: Clopidogrel TAB* 75 MG PO SCH (09:00)
[2016-08-31] MEDS: Docusate CAP* 100 MG PO SCH (09:00)
[2016-08-31] MEDS: OFLOXACIN 0.3% RIGHT EYE SCH (09:01)
[2016-08-31] MEDS: PREDNISOLONE 1% RIGHT EYE SCH (09:01)
[2016-08-31] MEDS: Rivaroxaban TAB(*) 15 MG PO SCH (09:17)
--- NOTE | 2016-08-31 15:22 | PN ---
Hospitalist Progress Note HOSPITALIST ADDENDUM Preauth obtained for Saumya. Case #[id number]. Pharmacy and patient notified.
--- NOTE | 2016-09-01 01:10 | DS ---
DISCHARGE SUMMARY: DATE OF ADMISSION: 08/27/16 DATE OF DISCHARGE: 08/31/16 PRIMARY CARE PROVIDER: Cuauhtemoc Davis MD CROTCH PIECE BASTER: Yajaira Salinas MD HEALTH AND SAFETY INSPECTOR: Dr. Carmen. DISCHARGE DIAGNOSES: 1. Non-ST elevation myocardial infarction, status post stent to the right coronary artery. 2. Atrial fibrillation. 3. Episode of nonsustained ventricular tachycardia. SECONDARY DIAGNOSES: 1. Obesity. 2. Hypertension. 3. Hyperlipidemia. MEDICATIONS LIST: 1. Prednisolone 1% one drop to right eye four times a day. 2. Ofloxacin one drop to right eye four times a day. 3. Garlic 1000 mg p.o. daily. 4. Hydrocodone/acetaminophen 5/325 mg one tablet p.o. q.4 hours p.r.n. pain. NEW MEDICATIONS: 1. Rivaroxaban 15 mg p.o. daily. 2. Nitroglycerin 0.4 mg sublingual q.5 minutes as needed for chest pain, maximum three doses. 3. Clopidogrel 75 mg p.o. daily. 4. Atorvastatin 80 mg p.o. at bedtime. 5. Atenolol 100 mg p.o. daily. 6. Aspirin 81 mg p.o. daily. HOSPITAL COURSE: Mr. Win is a 71-year-old male with a past medical history as stated above who presented to the emergency room with complaints of severe non- radiating, non-exertional substernal chest pressure associated with diaphoresis and lightheadedness. For more details about his presentation, I refer you to his history and physical. In the emergency room, he was found to have an initial troponin of 0.02 that later on went up to 19 and peaked at 50. The patient was admitted, started on a heparin drip and seen in consultation by Cardiology (Dr. Alok Alexander). His impression was the patient presented with non- ST elevation MS and atrial fibrillation of uncertain onset. His recommendation was for aspirin, heparin drip, beta-mohsen, intensive dose of statin, to check a lipid profile, hemoglobin A1c, and to proceed with cardiac cath. His lipid profile showed a total cholesterol of 133 with an LDL of 77 and hemoglobin A1c was 5.9. The patient was taken to the dental laboratory manager. Cardiac cath showed 80% stenosis of the RCA, status post stent and ejection fraction of 50%. Please note that this is a preliminary report as the full cardiac cath report is still pending at the time of this dictation. The patient did well after his cardiac cath with resolution of his chest pressure, no complaints of shortness of breath. He did have one episode of 8- beats of V- tach, asymptomatic and his beta-mohsen dose was increased. The patient is asymptomatic at this point. He has walked around the unit with no chest pain, shortness of breath or any further arrhythmias. The patient was found to be in atrial fibrillation on admission and this is of uncertain duration. He has CHAD2 VASc score of 3. At this point he will need dual antiplatelet therapy with aspirin and Plavix. So, Dr. Salinas recommended lower dose of Xarelto at 15 mg a day for now. After the dual-antiplatelet therapy is changed to just one agent, I believe the plan is to change him to full dose Xarelto. The patient is medically stable to be discharged at this time. He will follow up with his primary care provider next week and with Dr. Carmen on September 17 at 10:30 a.m. The patient received extensive education about his diagnosis and signs and symptoms that should prompt his return to the emergency room including , but not limited to signs of bleeding as he understands that he has a higher risk of bleeding due to his triple anticoagulation. PHYSICAL EXAMINATION: Vital Signs: Temperature 97.7, heart rate is 77, respiratory rate is 16, oxygen saturation 96% on room air, blood pressure is 110 /72. General: The patient is a pleasant obese male, sitting up in the chair, in no acute distress. CVS: Normal S1, S2. Regular rate and rhythm. Chest: Breath sounds present bilaterally with no added sounds. Abdomen: Soft, nontender, nondistended. Bowel sounds are present. Extremities: No edema. Right wrist cath is clean with no hematoma or bruising. Pulses are present and there is good capillary refill. Neuro: He is alert, awake, and oriented x3. Able to move all 4 extremities. DIET: Heart healthy diet. ACTIVITY: As tolerated. The patient received post-cath education and instructions. STATUS WHILE IN THE HOSPITAL: Inpatient. Please keep in mind that this is a summarized version of this patient's hospital stay. If you need more information, please feel free to call me at or please obtain the full medical records. TIME SPENT: Approximately 45 minutes was spent to complete this discharge. CC: Cuauhtemoc Davis MD in [place]; Yajaira Salinas MD; coke loader, Dr. Carmen* [id number]/[facility] #: [id number] [facility]
--- NOTE | 2016-09-03 03:23 | CATH ---
STENT REPORT: DATE OF PROCEDURE: 08/28/16 - ROOM #434 PRIMARY CARE PHYSICIAN: Dr. Davis in [place]. PROCEDURES: Right radial artery access, bilateral selective coronary cineangiography, left heart catheterization, left ventriculography, IVUS RCA, stent placement RCA, 4.0 x 38 Synergy drug-eluting stent post dilated with a 4.0 noncompliant balloon. HISTORY: A 71-year-old male with atrial fibrillation of unknown duration, non- ST elevation infarct. PROCEDURE ACCESS: Right radial artery sheath 6F slender. MEDICATIONS: 1. Subcu lidocaine. 2. IV Versed. 3. IV fentanyl. 4. Nitroglycerin 300 mcg. 5. Verapamil 3 mg IA. 6. Heparin 5000 units, 3000, 3000 units IV. 7. Oral Brilinta 180 mg. 8. Aspirin 81 mg p.o. DIAGNOSTIC CATHETERS: 5-F TIG4, 6-FL 4. GUIDING CATHETERS: 6-F hockey stick, Y14 BMW, IVUS catheter OptiCross. After diagnostic angiography, IVUS was performed of the RCA to help optimize deployment and minimize risk of subsequent stent thrombosis in a patient on triple anticoagulation. HEMODYNAMICS: Initial BP 106/72, LV 98/11-16, no aortic valve gradient on pullback. ANGIOGRAPHY: Image quality somewhat degraded by the patient's truncal obesity. Left main: Left main is normal in size, has no stenosis. It is calcified as is the proximal LAD and circumflex. LAD: The LAD is moderate, extends past the apex, supplies a large diagonal, extends past the apex. The LAD has scattered plaquing, no significant stenosis. Circumflex: The circumflex is moderate, nondominant with a moderate marginal and small posterolateral. The circumflex has luminal irregularity, but no significant stenosis. RCA: The RCA is large, there is calcified plaque in the wall of the aorta adjacent to its origin, the RCA at the acute margin has a lengthy stenosis accommodating in an 80% stenosis. Distally, the PDA is small, followed by a moderate posterolateral. The acute marginal branch supplies a portion of the distal inferior septum. After drug-eluting stent placement and post dilatation with a 4 mm noncompliant balloon to 20 atmospheres, distal flow is LUCIO 3, there is no residual stenosis. There is no dissection. IVUS: Pullback IVUS recording of the RCA demonstrates distal reference vessel diameter close to 4 x 4 media to media, mostly fibrous eccentric scattered plaque, significant noncalcified stenosis near the acute margin, and a short proximal RCA stenosis with 4-quadrant calcification without significant stenosis. Post stent deployment and post dilatation IVUS shows excellent apposition and expansion. LV gram: There is localized inferior basilar hypokinesis, preserved LVEF of 55% . CONCLUSION: 1. Single vessel disease RCA, excellent angiographic result with drug-eluting stent placement with IVUS guidance. 2. Normal LVEF with regional wall motion abnormality. 3. Successful right radial artery access. CC: Vinod Moore* [id number]/[facility] #: [id number] [facility]
== END 2016-08-31 11:17 | disposition home or self-care (01) | DRG 247 ==
LOC: ED 20:50 → MEDTELE 22:29 → OBSVTOIN 22:29 → INTOOBSV 22:29 → OBSVTOIN 08-28 04:22 → ICU 08-28 06:52 → MEDTELE 08-29 07:45
PROVIDERS: ADMIT Hospitalist; ATTEND Internal Medicine
PROC: B240ZZ3 Ultrasonography of Single Coronary Artery, Intravascular (ICD-10-PCS; 2016-08-28)
PROC: 4A023N7 Measurement of Cardiac Sampling and Pressure, Left Heart, Percutaneous Approach (ICD-10-PCS; 2016-08-28)
PROC: B2111ZZ Fluoroscopy of Multiple Coronary Arteries using Low Osmolar Contrast (ICD-10-PCS; 2016-08-28)
PROC: B2151ZZ Fluoroscopy of Left Heart using Low Osmolar Contrast (ICD-10-PCS; 2016-08-28)
PROC: 027034Z Dilation of Coronary Artery, One Artery with Drug-eluting Intraluminal Device, Percutaneous Approach (ICD-10-PCS; principal; 2016-08-28 09:15)
DX: I21.4 Non-ST elevation (NSTEMI) myocardial infarction (principal); I47.2 Ventricular tachycardia; I48.91 Unspecified atrial fibrillation; E66.9 Obesity, unspecified; Z68.38 Body mass index [BMI] 38.0-38.9, adult; I10 Essential (primary) hypertension; E78.5 Hyperlipidemia, unspecified; Z79.02 Long term (current) use of antithrombotics/antiplatelets; Z79.82 Long term (current) use of aspirin; I25.10 Atherosclerotic heart disease of native coronary artery without angina pectoris; Z82.49 Family history of ischemic heart disease and other diseases of the circulatory system; R40.2412 Glasgow coma scale score 13-15, at arrival to emergency department; Z98.41 Cataract extraction status, right eye
CPT/HCPCS: 36415; 71010; 80048; 80053; 80061; 83036; 83735; 83880; 84484; 85025; 85610; 85730; 93005; 93458; 94760; A9270-GY; C1725; C1753; C1769; C1876; C1887; C9600-RC; G0378; J1644; J2001; J2250; J3010

== ENCOUNTER 2016-11-16 08:35 | Inpatient (IN) | payer MEDICARE, BC ==
[2016-11-16] MEDS ORDERED: Acetaminophen TAB* 325 MG PO PRN (10:19)
[2016-11-16] MEDS ORDERED: Temazepam CAP* 15 MG PO PRN (10:19)
[2016-11-16] MEDS: NS 0.9% 1000 ML* 1,000 ML IV SCH (11:40)
--- NOTE | 2016-11-16 12:43 | HP ---
HISTORY AND PHYSICAL: DATE OF ADMISSION: 11/16/16 PRIMARY CARE PROVIDER: Dr. Cuauhtemoc Davis. BI TRI OPERATOR: Frandy Carmen MD CHIEF COMPLAINT: Rectal bleeding. HISTORY OF PRESENT ILLNESS: Hugh Win is a 71-year-old male who in August 2016 was admitted for non-ST elevation NV and had stent placed in the right coronary artery. The patient also was noted to be in new atrial fibrillation. During that time, he also had an episode of nonsustained ventricular tachycardia. The patient, as above mentioned, underwent at that point cardiac catheterization and had a stent placed in his right coronary artery. Subsequently he was placed on aspirin and Plavix. For his atrial fibrillation, he was placed on Xarelto. In the past several years, the patient has had history of intermittent bright red blood per rectum with stools. He stated that it would happen occasionally, usually with hard stool. He had 3 colonoscopies in the past several years and the most recent one was a year and half ago or so, performed by Dr. Rodriguez from [place], [place]. The colonoscopy showed polyps and no source of bleeding. The patient stated that in the past, the source of bleeding was noted to be in the rectum and was a rectal fissure. The patient stated that after he was placed on the anticoagulants, he experienced daily episodes of bleeding from rectum after his bowel movement. He was placed on stool softener and despite having soft stools, he still continued to bleed. He states that usually what happens, he has a bowel movement once a day, after the bowel movement, he has a significant amount of bright red blood that he passes with his bowel movement and afterwards he still continues to bleed from this rectum. He packs the area in between his buttocks with gauze and later on it stops bleeding after a while. In the past couple of months, the patient noted that he had more dyspnea on exertion, overall fatigue. He saw Dr. Carmen as outpatient who prepared the patient for cardiac catheterization that was suppose to occur today. Today the patient's CBC was also obtained prior to cardioversion and the patient was noted to have a hemoglobin level of 8, down from 15 in September, less than 2 months ago. The patient is going to be admitted with a diagnosis of lower GI bleed. Gastroenterology specialist is going to see the patient in consultation. For the time being, we will hold the patient's Xarelto. PAST MEDICAL HISTORY: 1. History of coronary artery disease status post non-ST elevating NV and stenting into RCA in August 2016. 2. History of persistent atrial fibrillation, diagnosed in August 2016. 3. Hypertension. 4. Dyslipidemia. 5. History of hernia repair. MEDICATIONS: Include: 1. Aspirin 81 mg daily. 2. Lipitor 80 mg daily. 3. Xarelto 15 mg daily. 4. Plavix 75 mg daily. 5. Atenolol 100 mg daily. 6. Fiber Gummies 2 daily. 7. Colace 100 mg daily. ALLERGIES: No known drug allergies. FAMILY HISTORY: Positive for father with heart disease and hypertension. SOCIAL HISTORY: The patient is currently retired. He denies any alcohol, tobacco, or drug use. He lives with his , Janene, who is his surrogate. REVIEW OF SYSTEMS: Please see history of present illness. The patient denies chest pain, but complains of dyspnea on exertion and overall fatigue. He stated that his energy level definitely lessened after his heart attack. Rectal bleeding as mentioned above. All the other 14-systems were reviewed with the patient and were otherwise negative. PHYSICAL EXAMINATION GENERAL: The patient is a very pleasant 71-year-old male, who is in no acute distress. Alert, awake, and oriented x3. VITAL SIGNS: Blood pressure 129/96, heart rate of 143 beats per minute, respiratory rate 16, oxygen saturation 98% on room air, and temperature 98.0. HEENT: Head is atraumatic, normocephalic. Eyes: Pupils, equal, and reactive to light and accommodation. Oropharynx is clear. Mucosa moist. NECK: Supple. No JVD. No bruits bilaterally. RESPIRATORY: Clear to auscultation bilaterally. CARDIOVASCULAR: Irregularly irregular rhythm. No murmurs. ABDOMEN: Soft, nontender. Bowel sounds present in all 4 quadrants. EXTREMITIES: There is no edema. Pulses present 2+ bilaterally. No clubbing or cyanosis. RECTUM: On evaluation of the patient's perirectal area, small nonbleeding hemorrhoids were noted. No evidence of rectal fissure on evaluation of the anus. NEUROLOGIC: Speech is clear. Cranial nerves II through XII grossly intact. Motor strength is 5/5 bilaterally. SKIN: On evaluation of the skin, no ecchymotic area or rashes noted. DIAGNOSTIC STUDIES/LAB DATA: Laboratory data: White blood cell count of 4.9, hemoglobin of 8.2, hematocrit of 26, and platelets of 239. Sodium was 135, potassium of 3.7, chloride 103, carbon dioxide 25, BUN 16, and creatinine 0.78. Liver function is unremarkable. The patient's EKG is pending at the time of dictation. ASSESSMENT AND PLAN: Hugh Win is a 71-year-old male who is status post stent placement to his right coronary artery in August 2016, subsequently on Plavix and aspirin. The patient also was placed on Xarelto due to persistent atrial fibrillation. Right now, he presents with rectal bleeding that is an exacerbation of a chronic problem that got much worse after he was placed on anticoagulation and dual-antiplatelet agents. At this point, I suspect that probably the patient is bleeding from an internal fissure or internal hemorrhoids. The patient's Xarelto is going to be held. I will continue aspirin and Plavix. The patient is going to be placed on clear liquid diet and I will ask the gastroenterology specialist to see the patient in consultation. Hemoglobin and hematocrit levels are going to be obtained every 8 hours while the patient is in hospital. In regards to the patient's history of hypertension and atrial fibrillation, the patient is going to be continued on atenolol that would be a rate controlling agent for this patient. Of note, please note that the patient's last taken vitals were actually reported several hours prior to my evaluation. Currently, the patient's heart rate is in the 90s. In regards to anticoagulation for the patient's atrial fibrillation, the patient was notified that his Xarelto needs to be stopped and he needs to be off anticoagulation for at least several days. He is aware of the increased risk of stroke during that period. For hyperlipidemia, the patient is going to be continued on Lipitor on a daily basis. For DVT prophylaxis, the patient is going to be placed on sequential compression devices. No anticoagulation is going to be instituted due to the above-mentioned bleed. The patient's code status is full. TIME SPENT: Approximately 65 minutes was spent on admission of this patient; more than half the time was spent [id number] with the patient during the interview and physical exam. CC: Dr. Carmen; Dr. Davis; Dr. Armas * [id number]/[facility] #: [id number] [facility]
[2016-11-16] MEDS ORDERED: Atenolol TAB* 50 MG PO ONE (14:49)
[2016-11-16] MEDS: Atorvastatin* 80 MG TAB PO SCH (17:37)
[2016-11-16] MEDS: Pantoprazole TAB (NF) 40 MG TAB PO SCH (20:12)
[2016-11-16] MEDS: Docusate CAP* 100 MG PO SCH (20:12)
--- NOTE | 2016-11-16 21:41 | CONS ---
CONSULTATION REPORT: DATE OF CONSULT: 11/16/16 REQUESTING PHYSICIAN: Dr. Olivas. INDICATION: Anemia. NARRATIVE: Mr. Win is a very pleasant 71-year-old gentleman with a history of hemorrhoids and fissures who came this morning to see Dr. Carmen for an elective cardioversion for AFib. The patient mentioned to Dr. Carmen that he had been feeling weak, tired, and lethargic. Dr. Carmen checked a hemoglobin. He was found to be 8. He was 15 just 2 months ago. In August, the patient had a heart attack and was found to be in AFib. He had a stent placed. Thus, he is on aspirin, Plavix, and Xarelto. The patient states that he has chronic bright red blood per rectum. This has been present for many years. He denies any dark and tarry stools. Denies any nausea. No vomiting. No upper abdominal pain. Beside the aspirin, he denies any other nonsteroidals. Of note , he did have a colonoscopy he believes a year and a half ago with Dr. Rodriguez in [place]. He believes that there were polyps and a fissure or a hemorrhoid seen. PAST MEDICAL HISTORY: Coronary artery disease, status post NM, atrial fibrillation, hypertension, hyperlipidemia. SURGERIES: Include hernia repair and coronary artery stent. MEDICATIONS: Include: 1. Aspirin. 2. Xarelto. 3. Plavix. 4. Lipitor 80. 5. Atenolol 100. 6. Colace. 7. Fiber. ALLERGIES: None. FAMILY HISTORY: Coronary artery disease, hypertension. SOCIAL HISTORY: No tobacco or IV drug use. No alcohol. REVIEW OF SYSTEMS: 12 systems were reviewed. Other than that mentioned in the HPI were unremarkable. PHYSICAL EXAM: Temperature is 98.4, blood pressure is 125/82. General: Well- appearing male, in no apparent distress. Alert and oriented. Pleasant and fluent. HEENT: Mucous membranes are moist without lesions, ulcers, or exudate. Trachea is midline. Head is normocephalic, atraumatic. Pale conjunctiva. Neck is supple. Heart: Irregular rate and rhythm. Lungs: Clear to auscultation. Abdomen: Obese. Positive bowel sounds. Soft, nontender, nondistended. No hepatosplenomegaly, masses, rebound, or guarding. Skin is warm and dry. He is pale. DIAGNOSTIC STUDIES/LAB DATA: Of note, his BUN is 16, hemoglobin is 8.2. Again , his hemoglobin on 09/28/16 was 15.2. Platelet count is normal. Creatinine is normal at 0.78. ASSESSMENT AND PLAN: This is a pleasant 71-year-old gentleman with a hemoglobin of 8 who is on aspirin, Plavix, and Xarelto. He has known hemorrhoids and fissures. He is bleeding from nose. The majority of this could be the bleeding from the hemorrhoids and the fissures; however, I am concerned there could be something else going on. He is on aspirin. peptic ulcer disease and then Xarelto and Plavix, I think we need to perform an upper endoscopy to rule out peptic ulcer disease. I will make arrangements for tomorrow. Additionally, I would like to do a flex sig to check on the hemorrhoids and fissures to see how bad they are. We will give him and flex sig tomorrow in addition to his EGD. CC: Dr. Davis; Dr. Carmen* [id number]/[facility] #: [id number] [facility]
[2016-11-16 21:52] LABS: Hematocrit 27 % (42-52); Hemoglobin 8.3 g/dl (14.0-18.0)
[2016-11-17] MEDS: NS 0.9% 1000 ML* 1,000 ML IV SCH ×2 (00:51→16:23)
[2016-11-17 05:49] LABS: Hematocrit 26 % (42-52); Hemoglobin 8.1 g/dl (14.0-18.0); Mean Corpuscular HGB Conc 31 g/dl (31-36); Mean Corpuscular Hemoglobin 25 pg (27-31); Mean Corpuscular Volume 80 fL (80-94); Mean Platelet Volume 7 um3 (7.4-10.4); Red Blood Count 3.21 10^6/ul (4.0-5.4); Red Cell Distribution Width 17 % (10.5-15); White Blood Count 6.3 10^3/ul (3.5-10.8)
[2016-11-17 06:00] LABS: BUN/Creatinine Ratio 15.9 (8-20); Calcium 8.5 mg/dL (8.6-10.3); EGFR African American 110.4 (>60); EGFR Non-African American 85.9 (>60); Potassium 3.8 mmol/L (3.5-5.0)
--- NOTE | 2016-11-17 07:23 | PN ---
Subjective Date of Service: 11/17/16 Interval History: Patient seen this morning. Feels well, denies chest pain, SOB. Just feels fatigued. Reports one BM yesterday that was brown with a very small amount of blood. Family History: Unchanged from Admission Social History: Unchanged from Admission Past Medical History: Unchanged from Admission Objective Active Medications: Acetaminophen (Tylenol Tab*) 650 mg PO Q4H PRN Aspirin (Aspirin Ec Low Dose*) 81 mg PO DAILY ARVIND Atenolol (Tenormin Tab*) 100 mg PO DAILY ARVIND Atorvastatin Calcium (Lipitor*) 80 mg PO QPM ARVIND Clopidogrel Bisulfate (Plavix Tab*) 75 mg PO DAILY ARVIND Docusate Sodium (Colace Cap*) 100 mg PO BID ARVIND Sodium Chloride (Ns 0.9% 1000 Ml*) 1,000 mls @ 75 mls/hr IV PER RATE ARVIND Pantoprazole Sodium (Protonix Tab (Nf)) 40 mg PO BID ARVIND Temazepam (Restoril Cap*) 15 mg PO BEDTIME PRN Vital Signs 11/16/16 11/16/16 11/16/16 09:13 11:08 17:20 Temperature 98 F 98.4 F 97.7 F Pulse Rate 143 122 69 Respiratory 16 16 16 Rate Blood Pressure 129/96 125/82 121/69 (mmHg) O2 Sat by Pulse 99 100 98 Oximetry 11/16/16 11/16/16 11/16/16 19:35 20:00 23:44 Temperature 98.1 F 98.1 F Pulse Rate 83 87 Respiratory 18 18 16 Rate Blood Pressure 112/74 120/65 (mmHg) O2 Sat by Pulse 98 95 Oximetry 11/17/16 03:41 Temperature 98.8 F Pulse Rate 97 Respiratory 20 Rate Blood Pressure 128/65 (mmHg) O2 Sat by Pulse 92 Oximetry Oxygen Devices in Use Now: None Appearance: Middle-aged, M, laying in bed in NAD Eyes: No Scleral Icterus Ears/Nose/Mouth/Throat: Mucous Membranes Moist Neck: NL Appearance and Movements; NL JVP Respiratory: Symmetrical Chest Expansion and Respiratory Effort, Clear to Auscultation Cardiovascular: NL Sounds; No Murmurs; No JVD, - - IRIR Abdominal: NL Sounds; No Tenderness; No Distention Lymphatic: No Cervical Adenopathy Extremities: No Edema Skin: No Rash or Ulcers Neurological: Alert and Oriented x 3 Result Diagrams: 11/17/16:00 11/17/16 05:00 Assess/Plan/Problems-Billing Assessment: Acute blood loss anemia in a 71 yo M with hx of HTN, HLD, CAD s/p PCI (EFREN to RCA in 08/2016), AFib on xarelto - Patient Problems (1) Acute blood loss anemia Current Visit: Yes Comment: Patient is at high bleeding risk on outpatient ASA , Plavix and Xarelto. Holding Xarelto for now, continuing ASA and Plavix in the setting of recent EFREN placement. Appreciate GI assistance. Plan for EGD and flex sig. BID PPI. Continue to monitor Hb, would transfuse for Hb<8. (2) Afib Current Visit: No Comment: Holding xarelto. Continue atenolol. (3) HLD (hyperlipidemia) Current Visit: No Comment: Continue Atorvastatin. (4) HTN (hypertension) Current Visit: No Comment: Continue Atenolol (5) CAD (coronary artery disease) Current Visit: Yes Comment: s/p EFREN to RCA in 08/2016. Continue ASA and Plavix for now with recent intervention. (6) DVT prophylaxis Current Visit: No Comment: SCDs Status and Disposition: Inpatient for GI bleed
[2016-11-17] MEDS: Clopidogrel TAB* 75 MG PO SCH (08:57)
[2016-11-17] MEDS: Pantoprazole TAB (NF) 40 MG TAB PO SCH ×2 (08:57→20:03)
[2016-11-17] MEDS: Atenolol TAB* 50 MG PO SCH (08:57)
[2016-11-17] MEDS: Docusate CAP* 100 MG PO SCH ×2 (09:13→20:03)
[2016-11-17] MEDS: Aspirin EC Low Dose* 81 MG TAB.EC PO SCH (09:13)
[2016-11-17] MEDS ORDERED: Midazolam* 1 MG/ML 10 ML VIAL (10 MG) ONE (14:03)
[2016-11-17] MEDS ORDERED: Meperidine SYRINGE* 50 MG/ML ONE (14:03)
[2016-11-17 16:14] LABS: Hematocrit 25 % (42-52); Hemoglobin 7.9 g/dl (14.0-18.0)
[2016-11-17] MEDS: Atorvastatin* 80 MG TAB PO SCH (18:25)
--- NOTE | 2016-11-18 00:34 | PRO ---
DATE: 11/17/16 - Inpatient, room #434 REFERRING PHYSICIAN: Dr. Cuauhtemoc Davis , Dr. Frandy Carmen.* PROCEDURES: Upper gastrointestinal endoscopy through to second portion of duodenum; proximal sigmoidoscopy to upper sigmoid. INDICATION: This 71-year-old man who presented with acute coronary disease and atrial fibrillation, onset unknown, in August, was found to be weak and anemic with a hemoglobin in the 8s. He reported no melena, but had been impressed by bright red rectal bleeding attributed to hemorrhoids that he has been afflicted by for decades. In August, he was placed on aspirin, Plavix and Xarelto. He has never had a history of acid indigestion or heart burn. He says a bottle of antacid tablets might last several years. He has never had upper endoscopy. Informed consent was obtained with an opportunity for questions, and special concerns with his daughter present in the room. ENDOSCOPIST: Dr. Flanagan. MEDICATION: Midazolam 6, meperidine 25. FINDINGS: He is a tall, large frame, mildly overweight older man, in no distress. His abdomen is soft and nontender. EGD: Symmetric, limited views. Esophagus - easily entered, the mucosa is normal from the upper sphincter at about 18 to 19 down to 46 to 47 where the EG junction is snug and without any erosion. There are no scars or ridges. There was no hiatal hernia, no fundic prolapse. Stomach - generally normal rugal folds and mucosa though there were a dozen or so wispy bleeding points seen. There was no clot or accumulated blood. There was not a generalized gastritis and no identified erosions. The gastric antrum appeared normal. The stomach was large and capacious and the pylorus could be reached only by full insertion of the scope almost up to the hilt with some rotation. At this point, the scope tip did pop into the duodenal bulb. There was no duodenitis or erythema and the bulb looked very pristine with some Boni's nodularity in the proximal bulb. The second portion appeared normal, but was seen just briefly. On slow withdrawal, there were no additional findings. FLEXIBLE SIGMOIDOSCOPY: Initial views show an empty rectum with normal mucosa. There is some mucoid soft stool that can be steered around and the scope sees about 80% of the mucosa up to 35 cm. There are no abnormalities. Pulling back towards to the rectum, no abnormalities are seen. Rectal retroflexion did show substantial hemorrhoidal bulges though they are not bleeding and there is no particular bulging stigmata of past hemorrhage. The hemorrhoidal columns are fairly lengthy. Slow anal pull-through showed no bleeding and there was no acute fissure demonstrated. IMPRESSION: 1. Mild gastropathy with chronic subacute bleeding - likely the major contributor to his anemia. 2. Large capacious stomach in an upper GI series once he is clinically stabilized might be of interest. 3. Internal anal canal hemorrhoids. 4. Anemia - suspect aspirin effect exacerbated by concurrent Plavix and Xarelto as the major source. The best management is uncertain, but might involve omeprazole 40 mg and holding Xarelto for 3 weeks reintroducing it if his hemoglobin rises with weekly CBCs. [id number]/[facility] #: [id number] [facility]
[2016-11-18 04:49] LABS: Hematocrit 26 % (42-52); Hemoglobin 8.4 g/dl (14.0-18.0); Mean Corpuscular HGB Conc 32 g/dl (31-36); Mean Corpuscular Hemoglobin 26 pg (27-31); Mean Corpuscular Volume 81 fL (80-94); Mean Platelet Volume 7 um3 (7.4-10.4); Red Blood Count 3.26 10^6/ul (4.0-5.4); Red Cell Distribution Width 17 % (10.5-15); White Blood Count 4.9 10^3/ul (3.5-10.8)
[2016-11-18 05:18] VITALS: BP 105/60
--- NOTE | 2016-11-18 08:02 | DCNOTE ---
Patient seen this morning. Feels well, no abdominal pain, no further bleeding but has not moved bowels since enema yesterday. Thinks he is feeling a bit more energized, light-headedness is improved. No chest pain. On exam, IRIR, no murmurs, lungs CTA B/L, abd soft, obese, BS+, non-tender Had less than optimal response to PRBC but is above Hb is > 8. Will plan to discharge home today on ASA/Plavix only, will stop Xarelto. Needs weekly CBC to monitor blood counts. F/U with PCP and with Dr. Carmen regarding further plans for anticoagulation and cardioversion.
[2016-11-18] MEDS: Docusate CAP* 100 MG PO SCH (08:36)
[2016-11-18] MEDS: Atenolol TAB* 50 MG PO SCH (08:36)
[2016-11-18] MEDS: Pantoprazole TAB (NF) 40 MG TAB PO SCH (08:36)
[2016-11-18] MEDS: Aspirin EC Low Dose* 81 MG TAB.EC PO SCH (08:36)
[2016-11-18] MEDS: Clopidogrel TAB* 75 MG PO SCH (08:36)
--- NOTE | 2016-11-18 11:47 | DS ---
CC: Dr. Davis, Dr. Carmen DISCHARGE SUMMARY: DATE OF ADMISSION: 11/16/16 DATE OF DISCHARGE: 11/18/16 PRIMARY CARE PHYSICIAN: Dr. Davis. PRINCIPAL DISCHARGE DIAGNOSIS: Acute blood loss anemia secondary to gastrointestinal bleed. SECONDARY DIAGNOSES: 1. History of coronary artery disease, status post drug-eluting stent placement in August 2016. 2. Atrial fibrillation, on Xarelto. 3. Hypertension. 4. Dyslipidemia. CONSULTS DURING HOSPITALIZATION: Dr. Tao Armas, GI, and Dr. Flavio Flanagan, GI. STUDIES DONE DURING HOSPITALIZATION: Upper endoscopy and flexible sigmoidoscopy, impression: Mild gastropathy with chronic subacute bleeding, likely the major contributor to his anemia, large capaci ous stomach. An upper GI series once he is clinically stabilized might be of interest. Internal an al canal hemorrhoids. DISCHARGE MEDICATION REGIMEN: 1. Aspirin 81 mg by mouth daily. 2. Garlic 1000 mg by mouth daily. 3. Colace 100 mg by mouth daily. 4. Plavix 75 mg by mouth daily. 5. Atorvastatin 80 mg by mouth nightly. 6. Atenolol 100 mg by mouth daily. 7. Nitroglycerin 0.5 mg sublingual q.5 minutes as needed for chest pain. 8. Inulin 2 tablets by mouth daily. 9. Omeprazole 40 mg by mouth daily. HISTORY OF PRESENT ILLNESS AND HOSPITAL SUMMARY: Please see the full history and physical by Dr. Milind Olivas, for details. Briefly, Mr. Win is a 71-year- old male with a past medical history as above, including NSTEMI and drug-eluting stent placement in August 2016, along with atrial fib rillation, on Xarelto, who presented to the hospital with bright red blood per rectum that has been ongoing for a few months as well as worsening fatigue. The patient planned to undergo cardioversion with Dr. Carmen; however, CBC obtained prior to this showed significant anemia. Patient was admitte d to the hospital. GI was consulted and the patient underwent upper endoscopy as well as flexible s igmoidoscopy as above. This showed some wispy areas of gastropathy, with subacute bleeding in the st omach. There are also hemorrhoids noted on flexible sigmoidoscopy; however, there were no stigmata o f recent bleeding. It was felt that the patient's anemia was likely due to his gastric findings. X arelto was held during this admission, will continue to be held as an outpatient. The patient will continue on aspirin and Plavix, which is needed in the setting of his recent stent placement. At GI 's recommendation, we will start the patient on a PPI. The patient received 1 unit of packed red bl ood cells during the hospital for hemoglobin of 7.9 in the setting of his recent NSTEMI. The patient will be sent home with weekly CBCs to monitor his blood counts. He will need to follow up with his PCP and with Dr. Carmen to determine if and when he will be restarted on Xarelto and the timing for possible cardioversion if that is still a possibility. TIME SPENT: Total time spent on this discharge 35 minutes. This is a summary of the hospitalization, please see the full medical record for further details. [id number]/[facility] #: [id number]
== END 2016-11-18 10:39 | disposition home or self-care (01) | DRG 378 ==
LOC: MEDTELE 09:10
PROVIDERS: ADMIT Internal Medicine; ATTEND Hospitalist
PROC: 0DJ08ZZ Inspection of Upper Intestinal Tract, Via Natural or Artificial Opening Endoscopic (ICD-10-PCS; principal; 2016-11-17)
PROC: 0DJD8ZZ Inspection of Lower Intestinal Tract, Via Natural or Artificial Opening Endoscopic (ICD-10-PCS; 2016-11-17)
PROC: 30233N1 Transfusion of Nonautologous Red Blood Cells into Peripheral Vein, Percutaneous Approach (ICD-10-PCS; 2016-11-17)
DX: K92.2 Gastrointestinal hemorrhage, unspecified (principal); D62 Acute posthemorrhagic anemia; I48.91 Unspecified atrial fibrillation; I11.9 Hypertensive heart disease without heart failure; K31.9 Disease of stomach and duodenum, unspecified; I25.10 Atherosclerotic heart disease of native coronary artery without angina pectoris; E78.5 Hyperlipidemia, unspecified; I25.2 Old myocardial infarction; Z79.82 Long term (current) use of aspirin; Z79.01 Long term (current) use of anticoagulants; Z95.5 Presence of coronary angioplasty implant and graft; Z79.02 Long term (current) use of antithrombotics/antiplatelets; Z79.899 Other long term (current) drug therapy; Z82.49 Family history of ischemic heart disease and other diseases of the circulatory system
CPT/HCPCS: 36415; 80048; 80053; 85014; 85018; 85025; 86850; 86900; 86901; 86922; 93005; A9270-GY; J2250; P9016